=== PATIENT | male | born 1945 | race Caucasian/White ===

== ENCOUNTER 2018-01-07 10:23 | Emergency (ER) | payer OTHER, BC, MEDICARE ==
[2018-01-07] MEDS: NS 500 ML IV (10:45)
[2018-01-07] MEDS: MORPHINE 4 MG/ML 1ML VIAL/SYRINGE (J2270) IV ×2 (10:51→11:25)
[2018-01-07 11:06] LABS: BASO # 0.1 10^3/uL (0.0-0.2); BASO % 0.6 % (0.0-1.0); EOS # 0.3 10^3/uL (0.0-0.50); EOS % 1.7 % (0.0-3.0); HEMATOCRIT 46.1 % (42.0-52.0); HEMOGLOBIN 15.8 g/dl (13.5-17.5); IMMATURE GRANULOCYTE % 0.5 % (0-3.0); LYMPH # 2.1 10^3/uL (1.5-4.5); LYMPH % 14.7 % (24.0-44.0); MEAN CORPUSCULAR HEMOGLOBIN 32.2 pg (27.0-33.0); MEAN CORPUSCULAR HGB CONC 34.3 g/dl (32.0-36.5); MEAN CORPUSCULAR VOLUME 94.1 fl (80.0-96.0); MONO # 0.9 10^3/uL (0.0-0.8); MONO % 6.3 % (0.0-5.0); NEUTROPHILS % 76.2 % (36.0-66.0); PLATELET COUNT, AUTOMATED 282 10^3/uL (150-450); RED CELL DISTRIBUTION WIDTH 12.4 % (11.5-14.5); WHITE BLOOD COUNT 14.4 10^3/uL (4.0-10.0)
[2018-01-07] MEDS: TETANUS/DIPHTHERIA TOX ADSORB ADULT 0.5ML SYR/VIAL (90714) IM (11:12)
[2018-01-07 11:46] LABS: INR 0.95; PROTHROMBIN TIME 12.8 SECONDS (12.4-14.5)
[2018-01-07 11:47] LABS: PARTIAL THROMBOPLASTIN TIME 30.4 SECONDS (26.8-37.9)
[2018-01-07 11:55] LABS: ALBUMIN 3.7 GM/DL (3.2-5.2); ALBUMIN/GLOBULIN RATIO 0.84 (1.00-1.93); ALKALINE PHOSPHATASE 51 U/L (45-117); ALT/SGPT 66 U/L (12-78); ANION GAP 8 MEQ/L (8-16); AST/SGOT 75 U/L (7-37); BILIRUBIN,DIRECT 0.1 MG/DL (0.0-0.2); BILIRUBIN,TOTAL 0.5 MG/DL (0.2-1.0); BLOOD UREA NITROGEN 23 MG/DL (7-18); CALCIUM LEVEL 8.9 MG/DL (8.8-10.2); CARBON DIOXIDE LEVEL 24 MEQ/L (21-32); CHLORIDE LEVEL 106 MEQ/L (98-107); CPK CREATINE PHOSPHOKINASE 354 U/L (39-308); CREATININE FOR GFR 1.75 MG/DL (0.70-1.30); GLOMERULAR FILTRATION RATE 40.9 (>42); GLUCOSE, FASTING 185 MG/DL (70-100); POTASSIUM SERUM 3.6 MEQ/L (3.5-5.1); SODIUM LEVEL 138 MEQ/L (136-145); TOTAL PROTEIN 8.1 GM/DL (6.4-8.2); TROPONIN I < 0.02 NG/ML (< 0.10)
[2018-01-07 11:56] LABS: CK-MB VALUE MASS 5.5 NG/ML (<3.6); MB/CK RELATIVE INDEX 1.55 (< OR =4)
[2018-01-07 12:27] LABS: ETHYL ALCOHOL (ETHANOL) < 0.003 % (0.000-0.010)
[2018-01-07] MEDS ORDERED: ISOVUE-370 76% 100ML VIAL (Q9967) As Ordered (12:39)
[2018-01-07] MEDS: fentaNYL 100 MCG/2 ML INJECTION (J3010) IV (13:23)
[2018-01-07] MEDS ORDERED: NS 1,000 ML IV (14:14)
== END 2018-01-07 14:40 | disposition short-term general hospital (02) ==
LOC: M ED 10:23
DX: S12.110A Anterior displaced Type II dens fracture, initial encounter for closed fracture (principal); V49.40XA Driver injured in collision with unspecified motor vehicles in traffic accident, initial encounter; Y92.410 Unspecified street and highway as the place of occurrence of the external cause; E11.9 Type 2 diabetes mellitus without complications; I10 Essential (primary) hypertension; E78.9 Disorder of lipoprotein metabolism, unspecified; Z79.899 Other long term (current) drug therapy; Z79.84 Long term (current) use of oral hypoglycemic drugs
CPT/HCPCS: 90714

== ENCOUNTER 2018-01-16 16:35 | Inpatient (IN) | payer OTHER, MEDICARE ==
[~2018-01-16 16:35] MED LIST: BISACODYL 5 MG TAB PO; FLEET ENEMA PR; ONDANSETRON 4 MG TAB (S0181) PO; ONDANSETRON 4MG/2ML VIAL (J2405) IM
[2018-01-16] MEDS: CYCLOBENZAPRINE 5MG TABLET PO (20:43)
[2018-01-16] MEDS: HEPARIN SOD (PORCINE) 5000 UNITS/ML VIAL SC (20:43)
[2018-01-16] MEDS: GABAPENTIN 100 MG CAP PO (20:43)
[2018-01-16] MEDS: SENOKOT S TAB PO (20:45)
[2018-01-17 07:04] LABS: BASO # 0.1 10^3/uL (0.0-0.2); BASO % 1.1 % (0.0-1.0); EOS # 0.5 10^3/uL (0.0-0.50); EOS % 6.3 % (0.0-3.0); HEMATOCRIT 38.9 % (42.0-52.0); HEMOGLOBIN 13.2 g/dl (13.5-17.5); IMMATURE GRANULOCYTE % 0.6 % (0-3.0); LYMPH # 1.5 10^3/uL (1.5-4.5); LYMPH % 17.9 % (24.0-44.0); MEAN CORPUSCULAR HEMOGLOBIN 31.8 pg (27.0-33.0); MEAN CORPUSCULAR HGB CONC 33.9 g/dl (32.0-36.5); MEAN CORPUSCULAR VOLUME 93.7 fl (80.0-96.0); MONO % 11.8 % (0.0-5.0); NEUTROPHILS # 5.2 10^3/uL (1.8-7.7); NEUTROPHILS % 62.3 % (36.0-66.0); PLATELET COUNT, AUTOMATED 344 10^3/uL (150-450); RED BLOOD COUNT 4.15 10^6/uL (4.30-6.10); RED CELL DISTRIBUTION WIDTH 12.1 % (11.5-14.5); WHITE BLOOD COUNT 8.4 10^3/uL (4.0-10.0)
[2018-01-17 07:19] LABS: ALBUMIN 2.8 GM/DL (3.2-5.2); ALBUMIN/GLOBULIN RATIO 0.55 (1.00-1.93); ALKALINE PHOSPHATASE 88 U/L (45-117); ALT/SGPT 33 U/L (12-78); ANION GAP 10 MEQ/L (8-16); AST/SGOT 21 U/L (7-37); BILIRUBIN,TOTAL 0.6 MG/DL (0.2-1.0); BLOOD UREA NITROGEN 38 MG/DL (7-18); CALCIUM LEVEL 9.5 MG/DL (8.8-10.2); CARBON DIOXIDE LEVEL 27 MEQ/L (21-32); CHLORIDE LEVEL 103 MEQ/L (98-107); CREATININE FOR GFR 1.51 MG/DL (0.70-1.30); GLOMERULAR FILTRATION RATE 48.5 (>42); GLUCOSE, FASTING 161 MG/DL (70-100); POTASSIUM SERUM 3.3 MEQ/L (3.5-5.1); SODIUM LEVEL 140 MEQ/L (136-145); TOTAL PROTEIN 7.9 GM/DL (6.4-8.2)
[2018-01-17] MEDS: metFORMIN (GLUCOPHAGE) 1000 MG TABLET PO ×2 (08:25→18:12)
[2018-01-17] MEDS: ROSUVASTATIN 10 MG TAB (CRESTOR) PO (08:25)
[2018-01-17] MEDS: CHLORTHALIDONE 25 MG TAB PO (08:26)
[2018-01-17] MEDS: amLODIPine 10 MG TAB PO (08:27)
[2018-01-17] MEDS: LISINOPRIL 20 MG TAB PO ×2 (08:28→15:50)
[2018-01-17] MEDS: ATENOLOL 50 MG TAB PO ×2 (08:28→21:00)
[2018-01-17] MEDS: FENOFIBRATE 145 MG TAB (TRICOR) PO (08:28)
[2018-01-17] MEDS: OMEGA-3 1050MG CAPSULE PO (08:28)
[2018-01-17] MEDS: SENOKOT S TAB PO ×2 (08:28→21:00)
[2018-01-17] MEDS: HEPARIN SOD (PORCINE) 5000 UNITS/ML VIAL SC ×2 (08:29→21:00)
[2018-01-17] MEDS: METAMUCIL (PSYLLIUM) PACKET PO (08:32)
[2018-01-17] MEDS: GABAPENTIN 100 MG CAP PO ×3 (10:49→21:00)
[2018-01-17] MEDS: BISACODYL 10 MG SUPP PR (15:54)
[2018-01-18] MEDS: CHLORTHALIDONE 25 MG TAB PO (08:13)
[2018-01-18] MEDS: ROSUVASTATIN 10 MG TAB (CRESTOR) PO (08:13)
[2018-01-18] MEDS: OMEGA-3 1050MG CAPSULE PO (08:13)
[2018-01-18] MEDS: GABAPENTIN 100 MG CAP PO ×3 (08:13→20:25)
[2018-01-18] MEDS: FENOFIBRATE 145 MG TAB (TRICOR) PO (08:13)
[2018-01-18] MEDS: amLODIPine 10 MG TAB PO (08:14)
[2018-01-18] MEDS: metFORMIN (GLUCOPHAGE) 1000 MG TABLET PO ×2 (08:14→17:29)
[2018-01-18] MEDS: SENOKOT S TAB PO ×2 (08:14→20:25)
[2018-01-18] MEDS: METAMUCIL (PSYLLIUM) PACKET PO (08:14)
[2018-01-18] MEDS: HEPARIN SOD (PORCINE) 5000 UNITS/ML VIAL SC ×2 (08:15→20:25)
[2018-01-18] MEDS: LIDOCAINE 5% (LIDODERM) PATCH TD (12:00)
[2018-01-18] MEDS: oxyCODONE 5MG TAB PO ×2 (12:04→22:22)
[2018-01-18] MEDS: LISINOPRIL 20 MG TAB PO (15:13)
[2018-01-18] MEDS: **NOTE PATIENT COMMENT** MISC XX (20:17)
[2018-01-18] MEDS: DEXTROMETHORPHAN 60MG/10ML SUSP 90ML BTL(DELSYM) PO (20:24)
[2018-01-18] MEDS: ATENOLOL 50 MG TAB PO (20:25)
[2018-01-18] MEDS ORDERED: **NOTE PATIENT COMMENT** MISC XX (21:00)
[2018-01-19] MEDS: oxyCODONE 5MG TAB PO ×2 (03:06→12:25)
[2018-01-19] MEDS: LIDOCAINE 5% (LIDODERM) PATCH TD (06:35)
[2018-01-19] MEDS: METAMUCIL (PSYLLIUM) PACKET PO (09:00)
[2018-01-19] MEDS: CHLORTHALIDONE 25 MG TAB PO (09:09)
[2018-01-19] MEDS: SENOKOT S TAB PO ×2 (09:09→20:51)
[2018-01-19] MEDS: ROSUVASTATIN 10 MG TAB (CRESTOR) PO (09:09)
[2018-01-19] MEDS: amLODIPine 10 MG TAB PO (09:09)
[2018-01-19] MEDS: FENOFIBRATE 145 MG TAB (TRICOR) PO (09:09)
[2018-01-19] MEDS: OMEGA-3 1050MG CAPSULE PO (09:09)
[2018-01-19] MEDS: metFORMIN (GLUCOPHAGE) 1000 MG TABLET PO ×2 (09:09→17:18)
[2018-01-19] MEDS: HEPARIN SOD (PORCINE) 5000 UNITS/ML VIAL SC (09:10)
[2018-01-19] MEDS: BISACODYL 5 MG TAB PO (12:24)
[2018-01-19] MEDS: ACETAMINOPHEN 325 MG TAB PO (17:18)
[2018-01-19] MEDS: LISINOPRIL 20 MG TAB PO (17:18)
[2018-01-19] MEDS: BENZONATATE 100 MG CAP PO (20:49)
[2018-01-19] MEDS: ATENOLOL 50 MG TAB PO (20:50)
[2018-01-19] MEDS: **NOTE PATIENT COMMENT** MISC XX (20:51)
[2018-01-20] MEDS: oxyCODONE 5MG TAB PO ×2 (01:38→06:41)
[2018-01-20] MEDS: BENZONATATE 100 MG CAP PO (03:11)
[2018-01-20] MEDS: LIDOCAINE 5% (LIDODERM) PATCH TD (06:29)
[2018-01-20] MEDS: SENOKOT S TAB PO (08:51)
[2018-01-20] MEDS: CHLORTHALIDONE 25 MG TAB PO (08:51)
[2018-01-20] MEDS: ROSUVASTATIN 10 MG TAB (CRESTOR) PO (08:51)
[2018-01-20] MEDS: amLODIPine 10 MG TAB PO (08:51)
[2018-01-20] MEDS: metFORMIN (GLUCOPHAGE) 1000 MG TABLET PO (08:51)
[2018-01-20] MEDS: METAMUCIL (PSYLLIUM) PACKET PO (08:51)
[2018-01-20] MEDS: OMEGA-3 1050MG CAPSULE PO (08:51)
[2018-01-20] MEDS: FENOFIBRATE 145 MG TAB (TRICOR) PO (08:52)
== END 2018-01-20 12:30 | disposition home health service (06) | DRG 862 ==
LOC: M PM&R 01-19 11:01
DX: S12.110D Anterior displaced Type II dens fracture, subsequent encounter for fracture with routine healing (principal); I10 Essential (primary) hypertension; E11.9 Type 2 diabetes mellitus without complications; I25.10 Atherosclerotic heart disease of native coronary artery without angina pectoris; E78.5 Hyperlipidemia, unspecified; Z79.84 Long term (current) use of oral hypoglycemic drugs; V49.40XD Driver injured in collision with unspecified motor vehicles in traffic accident, subsequent encounter; Y92.410 Unspecified street and highway as the place of occurrence of the external cause; Y93.89 Activity, other specified; Z96.653 Presence of artificial knee joint, bilateral; R05 Cough; Z79.899 Other long term (current) drug therapy

== ENCOUNTER → 2020-03-25 | Outpatient (CLI) | payer MEDICARE, BC ==
[~2020-03-25] MED LIST changes: +AMLO1TAB25 PO; +ATEN50TA9 PO; +BENZ-18 PO; +BISAC5TA PO; -BISACODYL 5 MG TAB PO; +COLA100C5 PO; +CRES10TA PO; +CYCL5TAB PO; +FENO160T10 PO; -FLEET ENEMA PR; +GABA-1171 PO; +HEPA1INJ23 IV; +INSUHUMDS SC; +LISI-538 PO; +METF10004 PO; +OMAC1CA PO; -ONDANSETRON 4 MG TAB (S0181) PO; -ONDANSETRON 4MG/2ML VIAL (J2405) IM; +OXYC-517 PO; +ROSU10TA6 PO; +SENN-53 PO; +TRAD5TAB PO; +TRAM37.53 PO; +TRAMADOL PO; +TYLE325T5 PO
== END ==
LOC: M ONCR 11:25
PROVIDERS: ATTEND General Practice
DX: C44.41 Basal cell carcinoma of skin of scalp and neck (principal); C44.729 Squamous cell carcinoma of skin of left lower limb, including hip

== ENCOUNTER 2020-04-02 10:22 | Outpatient (RCR) | payer MEDICARE, BC | END 2020-04-07 | LOC: M ONCR 10:22 | PROVIDERS: ATTEND General Practice | DX: C44.41 Basal cell carcinoma of skin of scalp and neck (principal); C44.729 Squamous cell carcinoma of skin of left lower limb, including hip ==